=== PATIENT | female | born 1970 | race Caucasian/White ===

== ENCOUNTER 2018-09-24 01:25 | Outpatient (CLI) | payer BC, SELFPAY ==
[2018-09-24 10:31] LABS: Hemoglobin A1C 5.1 % (4.5-6.2)
== END 2018-09-24 01:45 ==
PROVIDERS: PCP Naturopath; Visit Provider Naturopath
DX: Z83.3 Family history of diabetes mellitus (principal)
CPT/HCPCS: 36415; 83036

== ENCOUNTER 2019-10-20 03:57 | Outpatient (CLI) | payer BC, SELFPAY ==
[2019-10-20 10:19] LABS: Abs Immature Grans 0.02 k/cumm (0.0-0.09); Absolute Basophil Count 0.01 k/cumm (0.0-0.2); Absolute Eosinophil Count 0.07 k/cumm (0.0-0.7); Absolute Lymphocyte Count 1.87 k/cumm (1.2-3.4); Absolute Monocyte Count 0.56 k/cumm (0.11-0.7); Absolute Neutrophil Count 3.35 k/cumm (1.2-6.7); Basophils % 0.2; Eosinophils % 1.2; HCT 42.3 % (36.0-46.0); HGB 14.6 g/dL (12.0-15.5); Immature Grans % 0.3 %; Lymphocytes % 31.8; Mean Corp. HGB Concentration 34.5 g/dL (32.0-36.0); Mean Corpuscular Hemoglobin 31.1 pg (27.0-33.0); Mean Corpuscular Volume 90.2 fL (80-95); Mean Platelet Volume 9.5 fL (8.0-11.0); Monocytes % 9.5; Platelet Count 310 x1000/uL (130-400); RBC 4.69 m/cumm (4.00-5.20); RBC Distribution Width 11.8 % (11.7-14.6); White Blood Cell Count 5.88 k/cumm (4.4-10.8)
[2019-10-20 10:24] LABS: Hemoglobin A1C 5.3 % (3.8-5.6)
[2019-10-20 11:04] LABS: Iron 142 ug/dL (50-170)
[2019-10-20 11:19] LABS: ALT 40 U/L (14-59); AST 27 U/L (15-37); Albumin 4.1 g/dL (3.4-5.0); Alkaline Phosphatase 113 U/L (46-116); Anion Gap 9.4 mmol/L (3-11); BUN 6 mg/dL (7-18); Bilirubin, Total 0.6 mg/dL (0.2-1.0); CO2 28.6 mmol/L (21.0-32.0); CREATININE 0.71 mg/dL (0.55-1.02); Calcium 9.3 mg/dL (8.5-10.1); Chloride 97 mmol/L (98-107); Ferritin 90 ng/mL (8-252); Glucose 75 mg/dL (74-106); Potassium 4.4 mmol/L (3.5-5.1); Sodium 135 mmol/L (136-145); TSH 1.12 uIU/mL (0.36-3.74)
[2019-10-20 11:44] LABS: FREE T4 0.97 ng/dL (0.76-1.46)
[2019-10-20 16:23] LABS: T3,Free 4.5 pg/mL (2.8-5.3)
[2019-10-26 15:54] LABS: 25-Hydroxy D Total 60 ng/mL; 25-Hydroxy D2 <4.0 ng/mL; 25-Hydroxy D3 60 ng/mL
== END 2019-10-20 04:17 ==
PROVIDERS: PCP Naturopath; Visit Provider Naturopath
DX: D50.9 Iron deficiency anemia, unspecified (principal); E07.9 Disorder of thyroid, unspecified; R53.83 Other fatigue; E28.310 Symptomatic premature menopause; E55.9 Vitamin D deficiency, unspecified; M79.2 Neuralgia and neuritis, unspecified; Z13.220 Encounter for screening for lipoid disorders; Z13.1 Encounter for screening for diabetes mellitus
CPT/HCPCS: 36415; 80053; 82306; 82728; 83036; 83540; 84439; 84443; 84481; 85025

== ENCOUNTER 2020-04-14 19:02 | Emergency (ER) | payer BC, SELFPAY ==
[2020-04-14 19:06] VITALS: BP 189/95; PULSE 96; RESP 16; TEMP 36.5; O2SAT 96
--- NOTE | 2020-04-14 19:22 | W.ED.GENAD ---
Discharge Plan Disposition Patient Disposition: HOME Condition: Good Discharge Details Clinical Impression: Tick bite Primary Care Provider: Dustin Brumfield ED Provider: Fransisco Tilley Home Meds and New Rx's Prescriptions: No Action No Known Home Meds RF: 0 Discharge Instructions Instructions: Tick Bite (ED) Additional Instructions: You have been given the prophylactic dose for Lyme disease with 200 mg of doxycycline. Please put triple antibiotic ointment on the bite tu on your back. If you notice any spreading of the rash, fever or chills, please return immediately for reassessment. If you notice any worsening of your symptoms, or any new symptoms such as vomiting, diarrhea, fever, chills, shortness of breath, chest pain, numbness, weakness, or fainting , please return immediately to the emergency department for reevaluation. Please follow up with your primary care provider as soon as possible for reassessment and reevaluation. As always, it was a pleasure participating in your medical care today. Referrals: Dustin Brumfield [Primary Care Provider] - Medical Decision Making 49-year-old female with no significant past medical history presents today for tick bite. Patient states that for the last day and a half she suspects that she had a tick on her right shoulder. She has removed the tick, it is a deer tick. She denies fever or chills. She did have a small amount of redness over the right shoulder where the tick bite was. No other complaints at this time. No other modifying factors. There is question about this small tick and remaining in the bite site. A small scalpel was used to remove any leftover remnant. Patient tolerated this well. No signs or symptoms consistent with erythema migrans. Will give prophylactic dose of 200 mg of doxycycline. Discussed red flags which to return. I have extensively reviewed the treatment plan and discharge instructions with the patient. I have addressed all patient concerns at this time. The patient was made aware of what symptoms to monitor for that would warrant a return to the emergency department. Discussed the plan with the patient, they demonstrate verbal understanding and agreement with our assessment and plan at this time. HPI General Date/Time Provider Initiated Documentation: 04/14/20 19:02. HPI Narrative: 49-year-old female with no significant past medical history presents today for tick bite. Patient states that for the last day and a half she suspects that she had a tick on her right shoulder. She has removed the tick, it is a deer tick. She denies fever or chills. She did have a small amount of redness over the right shoulder where the tick bite was. No other complaints at this time. No other modifying factors. Related Data Home Medications Medication Instructions Recorded Confirmed Unknown [No Known Home Meds] 04/14/20 04/14/20 Allergies Allergy/AdvReac Type Severity Reaction Status Date / Time No Known Allergies Allergy Unverified 04/14/20 19:09 General Stated Complaint: RashLesion MILAD: 4 Review of Systems All systems reviewed & are unremarkable except as noted in HPI and below PFSH Social History Smoking/Tobacco Use Status: Current every day Tobacco Type: cigarettes Smoking risk assessment performed?: Yes Alcohol Intake: current Alcohol Intake frequency: holidays/special occasions only Drug use: Never Substance use type: does not use Do you feel safe at home: Yes Do you feel safe in your relationship?: Yes Exam Narrative Exam Narrative: 1.Const: Well-nourished, Well-developed, appearing stated age 2.Eyes: PERRL, no conjunctival injection, and symmetrical lids. 3.ENT: Atraumatic external nose and ears. Moist MM. Neck: Symmetric, trachea midline, No thyromegaly. 4.CVS: +S1/S2, No murmurs or gallops. Peripheral pulses 2+ and equal in all extremities. Brisk capillary refill in all extremities. 5.RESP: Unlabored respiratory effort. Clear to auscultation bilaterally. No wheezes rales or rhonchi 6.GI: Soft, Nontender/Nondistended, No hepatosplenomegaly. No guarding or rebound. 7.MSK: Normocephalic/Atraumatic, Extremities w/o deformity or ttp No cyanosis or clubbing, Normal movement of all extremities 8.Skin: Small lesion on the right posterior shoulder, the area was explored may have been a small retained tick head. This was removed with scalpel without incident. No bull's-eye lesion. Mild redness surrounding the bite site extending roughly 1.5 to 2 cm. 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 Sensation grossly intact, no focal neurologic deficits. 10.Psych: (AAO) x3. Appropriate mood and affect Course Vital Signs Vital signs: Vital Signs Temperature 36.5 C 04/14/20 19:06 Pulse 96 H 04/14/20 19:06 Respiratory Rate 16 04/14/20 19:06 Blood Pressure 189/95 H 04/14/20 19:06 Pulse Oximetry 96 04/14/20 19:06 Temperature 36.5 C 04/14/20 19:06 Temperature Source Skin 04/14/20 19:06 Pulse 96 H 04/14/20 19:06 Respiratory Rate 16 04/14/20 19:06 Respiratory Effort 04/14/20 19:16 Blood Pressure 189/95 H 04/14/20 19:06 Blood Pressure Position Sitting 04/14/20 19:06 Pulse Oximetry 96 04/14/20 19:06 Oxygen Delivery Method Room Air 04/14/20 19:06 Oxygen Flow Rate 0 04/14/20 19:06 Pain Level 2 04/14/20 19:06
[2020-04-14] MEDS: Doxycycline Hyclate 100 MG, 2 CAPS/BTL PO (19:28)
== END 2020-04-14 19:40 | disposition home or self-care (01) ==
LOC: ER 19:37
PROVIDERS: Emergency Provider Student in an Organized Health Care Education/Training Program; PCP Naturopath
DX: S40.261A Insect bite (nonvenomous) of right shoulder, initial encounter (principal); R21 Rash and other nonspecific skin eruption; W57.XXXA Bitten or stung by nonvenomous insect and other nonvenomous arthropods, initial encounter
CPT/HCPCS: 99283

== ENCOUNTER 2020-10-10 02:18 | Outpatient (CLI) | payer BC, SELFPAY ==
[2020-10-10 08:20] LABS: Abs Immature Grans 0.01 10^3/uL (0.0-0.06); Absolute Basophil Count 0.03 10^3/uL (0.0-0.2); Absolute Eosinophil Count 0.11 10^3/uL (0.0-0.7); Absolute Lymphocyte Count 1.68 10^3/uL (1.2-3.4); Absolute Monocyte Count 0.42 10^3/uL (0.1-0.8); Absolute Neutrophil Count 2.48 10^3/uL (1.2-6.7); Basophils % 0.6; Eosinophils % 2.3; HCT 42.4 % (36.0-46.0); HGB 14.6 g/dL (11.2-15.7); Immature Grans % 0.2; Lymphocytes % 35.5; MCH 31.3 pg (27.0-33.0); MCHC 34.4 % (32.0-36.0); MPV 9.6 fL (8.0-11.0); Monocytes % 8.9; Neutrophils % 52.5; Nucleated RBC 0 %; Platelet Count 288 10^3/uL (130-400); RBC 4.66 10^6/uL (3.93-5.22); RDW 11.8 % (11.7-14.6); RDW-SD 39.4 fL; WBC 4.73 10^3/uL (4.4-10.8)
[2020-10-10 09:29] LABS: ALT 76 U/L (14-59); AST 44 U/L (15-37); Albumin 3.9 g/dL (3.4-5.0); Alkaline Phosphatase 97 U/L (46-116); BUN 5 mg/dL (7-18); Bilirubin, Total 0.6 mg/dL (0.2-1.0); CREATININE 0.7 mg/dL (0.55-1.02); Calcium 9.2 mg/dL (8.5-10.1); Calculated LDL 119 mg/dL (<100); Chloride 103 mmol/L (98-107); Cholesterol 242 mg/dL (<200); Glucose 79 mg/dL (74-106); HDL Cholesterol 112 mg/dL (40-60); Potassium 4.6 mmol/L (3.5-5.1); Sodium 140 mmol/L (136-145); TSH 1.36 uIU/mL (0.36-3.74); Total Protein 7.7 g/dL (6.4-8.2); Triglyceride 58 mg/dL (<150)
[2020-10-10 09:58] LABS: FREE T4 1.01 ng/dL (0.76-1.46)
[2020-10-10 17:00] LABS: FSH 54.4 mIU/mL (See Note)
[2020-10-15 00:26] LABS: B.burgdorferi PCR, B Negative (Negative); B.garinii/B.afzelii PCR,B Negative (Negative); B.mayonii PCR, B Negative (Negative)
[2020-10-15 00:32] LABS: IgG Immunoblot Negative (Negative); IgM Immunoblot Negative (Negative)
[2020-10-15 13:51] LABS: 25-Hydroxy D Total 79 ng/mL; 25-Hydroxy D2 <4.0 ng/mL; 25-Hydroxy D3 79 ng/mL
== END 2020-10-10 02:19 | disposition home or self-care (01) ==
PROVIDERS: PCP Naturopath; Visit Provider Naturopath
DX: R53.83 Other fatigue (principal); G43.819 Other migraine, intractable, without status migrainosus; E55.9 Vitamin D deficiency, unspecified; D53.9 Nutritional anemia, unspecified; Z00.00 Encounter for general adult medical examination without abnormal findings; S40.261D Insect bite (nonvenomous) of right shoulder, subsequent encounter; Z13.220 Encounter for screening for lipoid disorders
CPT/HCPCS: 36415; 80053; 80061; 82306; 86617; 86900; 86901; 87476; 87798; 83001; 84439; 84443; 85025

== ENCOUNTER 2021-08-26 17:59 | Outpatient (REF) | payer BC, SELFPAY ==
--- NOTE | 2021-08-26 16:10 | PAPFT_PTH ---
PATIENT: Mitra Bang LOC: [facility] U#:[id number] AGE/SX: 51/F ROOM: RE08/26/[address]: Susan Wright MD : 1970 BED: DIS: 08/26/2021 SPEC #: [id number] RECD: 08/26/21 18:06 STATUS: FLOR REQ #: [id number] KARI: 08/26/21 16:[address]: Susan Wright DEPT: [facility] Cytology RECD BY: Kate Valdez ENTERED: 08/26/21 18:07 SP TYPE: PAPFT OTHR DR: Dustin Brumfield Tissues: 1 - CX/ENDOCX FOR PAP SMEARS Procedures: PAP THIN PREP/UVM Screening HPV DNA PROBE Comments: [id number]
== END 2021-08-26 18:00 | disposition home or self-care (01) ==
LOC: LBN 17:59
PROVIDERS: PCP Naturopath; Visit Provider Obstetrics & Gynecology
DX: Z12.4 Encounter for screening for malignant neoplasm of cervix (principal); Z11.51 Encounter for screening for human papillomavirus (HPV)
CPT/HCPCS: 88142; 87624

== ENCOUNTER 2021-09-16 02:22 | Outpatient (CLI) | payer BC, SELFPAY ==
[2021-09-16 16:36] LABS: Abs Immature Grans 0.01 10^3/uL (0.0-0.06); Absolute Basophil Count 0.04 10^3/uL (0.0-0.2); Absolute Eosinophil Count 0.09 10^3/uL (0.0-0.7); Absolute Monocyte Count 0.61 10^3/uL (0.1-0.8); Absolute Neutrophil Count 2.43 10^3/uL (1.2-6.7); Basophils % 0.7; Eosinophils % 1.6; HCT 40.2 % (36.0-46.0); HGB 13.7 g/dL (11.2-15.7); Immature Grans % 0.2; MCH 31.1 pg (27.0-33.0); MCHC 34.1 % (32.0-36.0); MCV 91.4 fL (80-95); MPV 9.1 fL (8.0-11.0); Monocytes % 10.7; Neutrophils % 42.8; Platelet Count 302 10^3/uL (130-400); RDW 11.6 % (11.7-14.6); RDW-SD 39.1 fL; WBC 5.68 10^3/uL (4.4-10.8)
[2021-09-16 18:47] LABS: ALT 60 U/L (14-59); AST 42 U/L (15-37); Albumin 4.2 g/dL (3.4-5.0); Alkaline Phosphatase 107 U/L (46-116); Anion Gap 8.5 mmol/L (3-11); BUN 10 mg/dL (7-18); Bilirubin, Total 0.3 mg/dL (0.2-1.0); CO2 29.5 mmol/L (21.0-32.0); CREATININE 0.8 mg/dL (0.55-1.02); Calculated LDL 112 mg/dL (<100); Chloride 97 mmol/L (98-107); Cholesterol 221 mg/dL (<200); Glucose 80 mg/dL (74-106); HDL Cholesterol 96 mg/dL (40-60); Potassium 4.3 mmol/L (3.5-5.1); Sodium 135 mmol/L (136-145); TSH 1.03 uIU/mL (0.36-3.74); Total Protein 7.9 g/dL (6.4-8.2); Triglyceride 66 mg/dL (<150); Vitamin B12 780 pg/mL (193-986)
[2021-09-16 18:54] LABS: Folate > 20.0 ng/mL (8.6-20.0)
[2021-09-16 19:20] LABS: FREE T4 1.04 ng/dL (0.76-1.46)
[2021-09-17 13:00] LABS: Bilirubin Negative (Negative); Blood Negative (Negative); Clarity Clear (Clear); Glucose Negative (Negative); Ketones Negative (Negative); Leukocyte Esterase Negative (Negative); Nitrite Negative (Negative); Urobilinogen 0.2 EU/dL (Up TO 0.2)
== END 2021-09-16 02:23 | disposition home or self-care (01) ==
LOC: LBO 02:22
PROVIDERS: PCP Naturopath; Visit Provider Naturopath
DX: E78.00 Pure hypercholesterolemia, unspecified (principal); E07.9 Disorder of thyroid, unspecified; R94.5 Abnormal results of liver function studies; N95.1 Menopausal and female climacteric states; G90.09 Other idiopathic peripheral autonomic neuropathy; G43.819 Other migraine, intractable, without status migrainosus; N60.19 Diffuse cystic mastopathy of unspecified breast; R53.83 Other fatigue; R39.15 Urgency of urination; D53.9 Nutritional anemia, unspecified; Z13.220 Encounter for screening for lipoid disorders
CPT/HCPCS: 36415; 80053; 80061; 81003; 82607; 82746; 84439; 84443; 85025

== ENCOUNTER 2022-12-24 15:58 | Outpatient (REF) | payer OTHER, SELFPAY ==
--- NOTE | 2022-12-24 13:55 | PAPFT_PTH ---
PATIENT: Mitra Bang LOC: [facility] U#:[id number] AGE/SX: 52/F ROOM: RE12/24/[address]: Susan Wright MD : 1970 BED: DIS: 12/24/2022 SPEC #: [id number] RECD: 12/24/22 18:34 STATUS: RICAnders REQ #: [id number] KARI: 12/24/22 13:[address]: Susan Wright DEPT: [facility] Cytology RECD BY: Kate Valdez ENTERED: 12/24/22 18:34 SP TYPE: PAPFT OTHR DR: Dustin Brumfield Tissues: 1 - CX/ENDOCX FOR PAP SMEARS Procedures: PAP THIN PREP/UVM Screening HPV DNA PROBE Comments: [id number]
== END 2022-12-24 15:59 | disposition home or self-care (01) ==
LOC: LBN 15:58
PROVIDERS: PCP Naturopath; Visit Provider Obstetrics & Gynecology
DX: Z12.4 Encounter for screening for malignant neoplasm of cervix (principal); Z11.51 Encounter for screening for human papillomavirus (HPV)
CPT/HCPCS: 88142; 87624

== ENCOUNTER 2022-12-31 04:11 | Outpatient (CLI) | payer OTHER, SELFPAY ==
[2022-12-31 10:47] LABS: Abs Immature Grans 0.01 10^3/uL (0.0-0.06); Absolute Basophil Count 0.04 10^3/uL (0.0-0.2); Absolute Eosinophil Count 0.05 10^3/uL (0.0-0.7); Absolute Monocyte Count 0.68 10^3/uL (0.1-0.8); Absolute Neutrophil Count 2.66 10^3/uL (1.2-6.7); Basophils % 0.7; Eosinophils % 0.9; HCT 40.9 % (36.0-46.0); HGB 14.2 g/dL (11.2-15.7); Immature Grans % 0.2; Lymphocytes % 36.8; MCH 29.5 pg (27.0-33.0); MCHC 34.7 % (32.0-36.0); MCV 85 fL (80-95); MPV 9.3 fL (8.0-11.0); Monocytes % 12.5; Neutrophils % 48.9; Platelet Count 342 10^3/uL (130-400); RBC 4.82 10^6/uL (3.93-5.22); RDW 13.4 % (11.7-14.6); RDW-SD 41.9 fL; WBC 5.44 10^3/uL (4.4-10.8)
[2022-12-31 12:01] LABS: Cholesterol 255 mg/dL (<200); HDL Cholesterol 123 mg/dL (40-60); LDL CHOLESTEROL 115 mg/dL (<100); Triglyceride 38 mg/dL (<150)
[2022-12-31 12:02] LABS: ALT 44 U/L (14-59); AST 37 U/L (15-37); Albumin 4.2 g/dL (3.4-5.0); Alkaline Phosphatase 116 U/L (46-116); BUN 5 mg/dL (7-18); Bilirubin, Total 0.9 mg/dL (0.2-1.0); CREATININE 0.7 mg/dL (0.55-1.02); Calcium 9.4 mg/dL (8.5-10.1); Chloride 97 mmol/L (98-107); Estimated GFR 102.71 (mL/min/1.73m2); Glucose 82 mg/dL (74-106); Potassium 4.1 mmol/L (3.5-5.1); Sodium 133 mmol/L (136-145); Total Protein 8.6 g/dL (6.4-8.2)
== END 2022-12-31 04:12 | disposition home or self-care (01) ==
PROVIDERS: PCP Naturopath; Visit Provider Obstetrics & Gynecology
DX: Z01.419 Encounter for gynecological examination (general) (routine) without abnormal findings (principal)
CPT/HCPCS: 36415; 80053; 83721; 82465; 83718; 84478; 85025

== ENCOUNTER 2023-06-08 02:52 | Outpatient (CLI) | payer OTHER, SELFPAY ==
[2023-06-08 12:20] LABS: Total Protein 8.5 g/dL (6.4-8.2)
== END 2023-06-08 02:53 | disposition home or self-care (01) ==
LOC: LBO 02:52
PROVIDERS: Absent Provider Nurse Practitioner; PCP Nurse Practitioner; Visit Provider Nurse Practitioner
DX: R79.9 Abnormal finding of blood chemistry, unspecified (principal)
CPT/HCPCS: 36415; 82040; 84155

== ENCOUNTER → 2023-06-18 00:40 | Outpatient (CLI) | payer OTHER, SELFPAY ==
--- NOTE | 2023-06-18 08:15 | DI.MRI_ITS ---
Exam(s) MR LOWER EXTREMITY LT WO EXAM: MR LOWER EXTREMITY LT WO CLINICAL HISTORY: 5 mos pain left upper calf,m79.605 TECHNIQUE: Multiplanar multisequence MRI was performed of apparent area of clinical concern. Bavpt-nn-kiuw is i ncluding the knee down to almost mid calf level.. COMPARISON: No exams were available for comparison FINDINGS: There is no abnormal intraosseous signal within the proximal half of the included tibia and fibula. Posteriorly in there is some intramuscular signal evident in the superficial aspect of the medial gas tro cine medius muscle confined to slightly below the posterior aspect of the knee and upper calf. I n the region of the musculotendinous junction. Most probably related to prior strain or injury. Als o noted is abnormal signal in the popliteus muscle medially behind the upper tibia. This is 1 of the 3 components of the lateral collateral ligament complex. This exhibits signal abnormality at the mu sculotendinous junction and cystic change extending up to the musculotendinous junction. See below. Although this is not a dedicated knee MRI, there are significant findings seen in the knee which are detailed below.... EFFUSION: There is a moderate size knee joint effusion. There is no Clifton cyst in the medial poplite al fossa. MARROW:There is no evidence of fracture, bone contusion, nor osteochondral defects.. There are no si gnificant osseous lesions in the knee.. PATELLOFEMORAL COMPARTMENT: The included distal most quadriceps tendon is intact. The patellar ligam ent is intact. There is some thinning of the retropatellar cartilage and abnormal intraosseous signal in the posteri or patella but unfortunately this is only partly included in the field of view. There may be develop ing osteochondral defect at this level.There is no intraosseous signal to suggest recent patellar dis location. There are no patellar retinacular tears. CRUCIATE LIGAMENTS: The anterior cruciate ligament is intact.The posterior cruciate ligament is intac t. MEDIAL COMPARTMENT/MEDIAL MENISCUS: There is no oblique tear in the posterior horn of the medial meni scus which violates the inferior articular surface. No flipped meniscal fragments. The root of the medial meniscus remains intact. The anterior horn of the medial meniscus is intact. There is no men iscocapsular separation.. There are no chondral defects, osteochondral defects, subarticular marrow edema, nor osteophytes evid ent. MEDIAL COLLATERAL LIGAMENT: Intact LATERAL COMPARTMENT/LATERAL MENISCUS: There is no evidence of lateral meniscal tear.There are no orlando dral defects, osteochondral defects, subarticular marrow edema, nor osteophytes evident. ILIOTIBIAL BAND: Intact LATERAL COLLATERAL LIGAMENT COMPLEX: The fibular collateral ligament is intact. The biceps femoris t endon is intact.Popliteus tendon appears intact but there is signal abnormality throughout the vertic al length of the popliteus from its origin behind the upper tibia up to the musculotendinous junction in the knee joint. There is cystic change in the muscle at this level. IMPRESSION: Multilevel findings as described above.... 1. Although this study concentrated (as per request) on the posterior upper calf, part of the knee wa s included in the field of view and reveals significant intra-articular abnormalities in the knee. There is an oblique tear of the posterior horn of the medial meniscus and there is a moderate size kn ee joint effusion. There are no tears of the lateral meniscus nor of the cruciate ligaments nor of t he medial collateral ligament. However, there is abnormal signal consistent with injury in 1 of the 3 components of the lateral collateral ligament complex, this being the popliteus muscle which origin ates off the upper posterior tibia and continues into the knee with its tendon inserting onto the out er aspect of the lateral femoral condyle. There is significant abnormal signal within the vertically orientated musculature of the popliteus behind the upper tibia and up to the muscular tendinous junc tion within the intra-articular knee joint. Are also multiple contiguous cystic degenerative change in this muscle over a vertical length of 2.5 cm with each cystic component measuring approximately 7 x 5 mm. Suspect that this is posttraumatic. The actual tendon component of the popliteus appears in tact. The other 2 components of the lateral collateral ligament complex including the biceps femora is tendon and the fibular collateral ligament appear unremarkable. 2. Most posteriorly in the upper calf there is mild signal abnormality in the posterior aspect of the medial gastrocnemius muscle consistent with probable sprain. This may have probably occurred at the same time as the popliteus injury. 3. Also incidentally noted is significant thinning of the retropatellar cartilage in the knee and sig nal abnormality in the posterior patella. Possible developing osteochondral defect or degenerative s ubarticular cyst at this level. 4. No abnormal intraosseous signal in the knee and proximal tibia-fibula down to the junction of the upper and mid thirds of these bones (which is the lower aspect of the field of view of this MRI study ) DATA REPOSITORY:
== END ==
PROVIDERS: PCP Nurse Practitioner; Visit Provider Nurse Practitioner
DX: M23.222 Derangement of posterior horn of medial meniscus due to old tear or injury, left knee (principal)
CPT/HCPCS: 73718

== ENCOUNTER 2023-07-21 15:12 | Outpatient (CLI) | payer OTHER, SELFPAY ==
--- NOTE | 2023-07-21 14:30 | DI.RAD_ITS ---
Exam(s) XR KNEE LT 3V AP,LAT,LINA EXAM: XR KNEE LT 3V AP,LAT,LINA CLINICAL HISTORY: LEFT KNEE PAIN. TECHNIQUE: 2D digital imaging was performed. COMPARISON: No exams were available for comparison FINDINGS: 3 views No evidence of fracture. Small amount of increased joint fluid. No joint space narrowing. Bone den sity normal. No osseous lesions. IMPRESSION: No acute osseous findings. Small amount of increased joint fluid. DATA REPOSITORY: RADIATION DOSE DELIVERED:
== END 2023-07-21 15:13 | disposition home or self-care (01) ==
LOC: DIORS 15:15
PROVIDERS: PCP Nurse Practitioner; Visit Provider Student in an Organized Health Care Education/Training Program
DX: M25.562 Pain in left knee (principal)
CPT/HCPCS: 73562

== ENCOUNTER 2023-10-06 19:23 | Emergency (ER) | payer OTHER, SELFPAY ==
--- NOTE | 2023-10-06 19:15 | RT.EKG_ITS ---
APPROVED REPORT Exam: Resting ECG Reason for Exam: chest heaviness, rapid pulse Patient Location: E HR:95 bpm ECG Measurements Heart Rate 95 AXIS RI 137 P 27 QRSd 90 QRS 36 QT 361 T 8 QTc 454 Conclusion Sinus rhythm...normal P axis, V-rate 60- 99 sinus rhtyhm, normal axis, noraml intervals, non ischemic
[2023-10-06 19:26] VITALS: BP 200/108; PULSE 105; RESP 18; TEMP 36.9; O2SAT 100
--- NOTE | 2023-10-06 20:00 | DI.RAD_ITS ---
Exam(s) XR CHEST 2V PA LATERAL EXAM: XR CHEST 2V PA LATERAL CLINICAL HISTORY: chest pain TECHNIQUE: 2D digital imaging was performed of the chest. Two images were obtained. PA and lateral views were obtained. COMPARISON: No exams were available for comparison FINDINGS: MEDIASTINUM: Normal. HEART: Normal. PULMONARY VASCULATURE: Normal. LUNGS: Clear. PLEURAL SPACE: No pleural effusion or pneumothorax. BONE:Within normal limits for the patient's age. OTHER FINDINGS:Normal. IMPRESSION: No acute pulmonary findings. DATA REPOSITORY: RADIATION DOSE DELIVERED:
--- NOTE | 2023-10-06 20:08 | ED.GENADUL_ITS ---
Discharge Plan Disposition Patient Disposition: Home Condition: Improving Discharge Details Chief Complaint: GenMedical Clinical Impression: Hypertension Primary Care Provider: Rohini Sullivan ED Provider: Chirag Chapman Home Meds and New Rx's Prescriptions: No Action ascorbic acid (vitamin C) 1,000 mg tablet 1 g PO DAILY cholecalciferol (vitamin D3) 125 mcg (5,000 unit) capsule 125 mcg PO DAILY vitamin B complex Tablet 1 tab PO DAILY Discharge Instructions Instructions: Hypertension (ED) Additional Instructions: Please follow closely with your primary care physician. Please return to the emergency department for any worsening symptoms HPI General Date/Time Provider Initiated Documentation: 10/06/23 19:55 . HPI Narrative: 53-year-old female presents with nondraining anterior chest pain that began earlier this evening in the setting of high blood pressure at home. Has been under stress related to work related issues. No history of thromboembolic disease no history of coronary disease, no exogenous estrogen use. Pain pressure-like anterior nonradiating nonexertional no diaphoresis nausea vomiting or other systemic signs of illness. Patient feeling asymptomatic now Related Data Home Medications Medication Instructions Recorded Confirmed ascorbic acid (vitamin C) 1,000 mg 1 g PO DAILY 08/26/21 10/06/23 tablet cholecalciferol (vitamin D3) 125 125 mcg PO DAILY 08/26/21 10/06/23 mcg (5,000 unit) capsule vitamin B complex 1 tab PO DAILY 12/24/22 10/06/23 Allergies Allergy/AdvReac Type Severity Reaction Status Date / Time house dust Allergy Intermediate Stuffed up Verified 10/06/23 19:31 pollen Allergy Intermediate stuffed up Uncoded 10/06/23 19:31 General Stated Complaint: GenMedical MILAD: 3 Review of Systems Narrative: Review of Systems Constitutional: negative Eyes: negative ENT: negative Cardiovascular: Chest discomfort, high blood pressure Respiratory: negative Gastrointestinal: negative : negative Musculoskeletal: negative Skin: negative Neurologic: negative Psych: negative Exam Narrative Exam Narrative: Physical Examination General: alert, awake, cooperative, resting comfortably, no acute distress HEENT: normocephalic, atraumatic; PERRL, EOM intact, conjunctiva normal; no nasal discharge; moist mucous membranes, oral and pharyngeal mucosa normal, tolerating secretions Neck: supple, trachea midline; full ROM Chest: normal to inspection Respiratory: normal respiratory effort, speaking in full sentences, clear to auscultation, no wheezing, rales or rhonchi Cardiac: regular rate, regular rhythm, S1S2 intact, no murmurs rubs or gallops GI: abdomen soft, non-tender, non-distended; no palpable mass or hepatosplenomegaly Skin: no lesions, rashes or trauma appreciated Neuro: AAOx3, normal speech, moving all extremities Extremities: No peripheral edema Psych: Appropriate mood and affect Course Vital Signs Vital signs: Vital Signs Temperature 36.9 C 10/06/23 19:26 Pulse 105 H 10/06/23 19:26 Respiratory Rate 18 10/06/23 19:26 Blood Pressure 200/108 H 10/06/23 19:26 Pulse Oximetry 100 10/06/23 19:26 Temperature 36.9 C 10/06/23 19:26 Temperature Source Temporal Artery Scan 10/06/23 19:26 Pulse 105 H 10/06/23 19:26 Respiratory Rate 18 10/06/23 19:26 Respiratory Effort Normal, Non-Labored 10/06/23 19:32 Blood Pressure 200/108 H 10/06/23 19:26 Blood Pressure Position Sitting 10/06/23 19:26 Pulse Oximetry 100 10/06/23 19:26 Oxygen Delivery Method Room Air 10/06/23 19:26 Oxygen Flow Rate 0 10/06/23 19:26 Pain Level 0 10/06/23 19:26 Medical Decision Making 53-year-old female presents with nondraining anterior chest pain that began earlier this evening in the setting of high blood pressure at home. Has been under stress related to work related issues. No history of thromboembolic disease no history of coronary disease, no exogenous estrogen use. Pain pressure-like anterior nonradiating nonexertional no diaphoresis nausea vomiting or other systemic signs of illness. Patient feeling asymptomatic now. Blood pressure down trended to 160 systolic after arrival, heart rate 95 bpm, no hypoxia afebrile nontoxic no peripheral edema. EKG normal sinus rhythm normal axis normal intervals nonischemic. Consider ACS versus anxiety versus musculoskeletal discomfort low suspicion for PE or aortic pathology. Screening labs chest x-ray aspirin offered patient anxiolysis however she feels comfortable at this time. Disposition pending reassessment 22: 04 resting comfortably no acute distress. Asymptomatic. Blood pressure has come down on its own. Patient much more comfortable. Will follow-up close with primary care physician. Quality:SDOH Health Related Social Needs: No Data to Display PFSH All Active Problems (Updated 10/06/23 @ 22:05 by Chirag Chapman MD) Hypertension (Chronic) Derangement of medial meniscus of left knee (Acute) Post-menopausal bleeding (Acute) LEVAR (stress urinary incontinence, female) (Acute) Migraine headache (Chronic) Medical History Round hole, right eye 12/22/22 [facility] Swelling, mass, or lump in head and neck Family History Maternal Grandmother Cancer Maternal Grandfather Cancer Paternal Grandfather Cancer Heart disease Maternal Grandmother Cancer Mother Diabetes Father Hypertension Brother , half brother passed from cancer at 49, per previous pcp record Cancer Anxiety Social History Smoking/Tobacco Use Status: Current every day Tobacco Type: cigarettes Tobacco: How many years used: 35 Quit status: considering quitting Second Hand Exposure: No Smoking risk assessment performed?: Yes Alcohol Intake: current Alcohol Intake frequency: a few times a week Alcohol type: beer Details: 4 or more times a week 3-4 at a time. More than ? 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 [employer] Pets and animals: Yes (1 dog) Pets and animals: dog(s) Sexually active: No Do you think of yourself as: straight/heterosexual Current gender identity: female What is your relationship status?: How often do you talk on the phone with friends or family?: once per week Do you belong to any clubs or organized social groups?: yes Panel score (0-1 are the most socially isolated patients): 2 What type of physical activity do you participate in: additional Details: [employer] [place] [employer] Duration: 45-60 minutes/day Frequency: 1-2 times per week Mirian/Confucianism: None Special mirian needs: No Seatbelt use: always Helmet use: Yes Drive intox or ride w/intox local flatbed driver: No Do you feel safe at home: Yes Do you feel safe in your relationship?: Yes Female Reproductive History Menstrual Age of Menarche: 10 Duration of menses: 3-5 days Date of menopause: 07/29/20 History History 4 Para 3 Hx # Term Pregnancies Multiple births Hx # Pregnancies Ectopic pregnancies AB induced Hx Number of Living Children AB spontaneous 1 Past Pregnancies Del. Date GA/Weeks # Preg Succ Route Wgt Sex Labor Lgth Anesth esia Location Prov Complic 06/07/00 40 No vaginal 3458.642 g Male 02/12/03 41 No vaginal 3458.642 g Male Child identifies as tr ans 02/29/08 40 No vaginal 3628.739 g Male Delivery Date: 06/07/00 Last Updated by: Amanda Gonsalez home Delivery Date: 02/12/03 Last Updated by: Amanda Gonsalez bleeding after - stopped by natural tincture during home Delivery Date: 02/29/08 Last Updated by: Amanda Gonsalez home
[2023-10-06 20:18] LABS: Absolute Basophil Count 0.02 10^3/uL (0.0-0.2); Absolute Eosinophil Count 0.04 10^3/uL (0.0-0.7); Absolute Lymphocyte Count 1.96 10^3/uL (1.2-3.4); Absolute Monocyte Count 0.49 10^3/uL (0.1-0.8); Absolute Neutrophil Count 2.47 10^3/uL (1.2-6.7); Basophils % 0.4 %; Eosinophils % 0.8 %; HCT 38.5 % (36.0-46.0); HGB 13.1 g/dL (11.2-15.7); Lymphocytes % 39.4 %; MCH 28.2 pg (27.0-33.0); MCV 83 fL (80-95); MPV 8.9 fL (8.0-11.0); Monocytes % 9.8 %; Neutrophils % 49.6 %; Platelet Count 326 10^3/uL (130-400); RBC 4.64 10^6/uL (3.93-5.22); RDW 14.3 % (11.7-14.6); RDW-SD 43.3 fL; WBC 4.98 10^3/uL (4.4-10.8)
[2023-10-06 20:31] LABS: PTT Activated 29.7 sec (23.6-32.8); Prothrombin Time 9.9 sec (9.1-11.1)
[2023-10-06 20:44] LABS: ALT 33 U/L (14-59); AST 25 U/L (15-37); Albumin 4.3 g/dL (3.4-5.0); Alkaline Phosphatase 111 U/L (46-116); Anion Gap 11.5 mmol/L (3-11); BUN 9 mg/dL (7-18); Bilirubin, Total 0.5 mg/dL (0.2-1.0); CO2 25.5 mmol/L (21.0-32.0); CREATININE 0.8 mg/dL (0.55-1.02); Calcium 9.1 mg/dL (8.5-10.1); Chloride 97 mmol/L (98-107); Estimated GFR 86.96 (mL/min/1.73m2); Glucose 92 mg/dL (74-106); Magnesium 2.1 mg/dL (1.8-2.4); NT-proBNP 91 pg/mL (<300); Potassium 3.6 mmol/L (3.5-5.1); Sodium 134 mmol/L (136-145); TSH (W/Ref FT4) 1.81 uIU/mL (0.36-3.74); Total Protein 8.7 g/dL (6.4-8.2); Troponin I < 50 ng/L (< or =60)
[2023-10-06] MEDS: Aspirin 81 MG CHEW 324 MG CH (21:11)
[2023-10-06 21:13] VITALS: BP 160/86; PULSE 80; RESP 18; O2SAT 100
[2023-10-06 21:14] VITALS: RESP 15; O2SAT 99
--- NOTE | 2023-10-06 21:59 | DI.VRAD_ITS ---
PROCEDURE INFORMATION: Exam: XR Chest Exam date and time: 10/06/2023 8:27 PM Age: 53 years old Clinical indication: Other: Chest pain TECHNIQUE: Imaging protocol: Radiologic exam of the chest. Views: 2 views. COMPARISON: No relevant prior studies available. FINDINGS: Lungs: Unremarkable. No consolidation. Pleural spaces: Unremarkable. No pleural effusion. No pneumothorax. Heart/Mediastinum: Unremarkable. No cardiomegaly. Bones/joints: Unremarkable. IMPRESSION: No acute findings. Dictated and Authenticated by: Mauri Bender MD. Ordering:OMER Beard MD
[2023-10-06 22:12] VITALS: BP 167/96; PULSE 95; RESP 18; O2SAT 99
== END 2023-10-06 22:13 | disposition home or self-care (01) ==
PROVIDERS: Emergency Provider Emergency Medicine; PCP Nurse Practitioner
DX: R07.9 Chest pain, unspecified (principal); R03.0 Elevated blood-pressure reading, without diagnosis of hypertension; F17.210 Nicotine dependence, cigarettes, uncomplicated
CPT/HCPCS: 80053; 93005; 99285; 71046; 83735; 83880; 84443; 84484; 85025; 85610; 85730; 93010; 99284

== ENCOUNTER 2023-12-16 02:38 | Outpatient (CLI) | payer OTHER, SELFPAY ==
--- OUTSIDE RECORDS SUMMARY | 2023-12-16 02:40 | XMS_ITS | Clinical Summary ---
Author Organization 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 Rig Builder Name Role Phone Dustin Brumfield [place] Primary Care Provider Allergies No known active allergies Medications No known medications Social History Tobacco Use Types Packs/Day Years Used Date Smoking Tobacco: Never Smokeless Tobacco: Never Interpersonal Safety Answer Date Record ed Physically Hurt Never 12/31/2019 Verbally Threaten Not on file 12/31/2019 Sex and Gender Information Value Date Recorded Sex Assigned at Not on file Gender Identity Not on file Sexual Orientation Not on file Obstetrics History Plan of Treatment Health Maintenance Due Date Last Done Comments Hepatitis C Screen 1970 Hepatitis B Vaccine (1 of 3 - 19+ 3-dose series) 06/22 COVID-19 Vaccine ( season) 2023 Care Teams Oil Field Rig Builder Relationship Specialty Start Date End Date Dustin Brumfield [place] [address] [place] [address] PCP - General 08/27/17
--- OUTSIDE RECORDS SUMMARY | 2023-12-16 02:40 | XMS_ITS | Encounter Summary ---
Author Organization [facility] Address [address] [place] [address] Care Team Providers Care Iron Miner Name Role Phone Dustin Brumfield ND Primary Care Provider Reason for Visit * Reason Onset Date Comments Appointment Related 10/25/2017 Encounter Details Date Type Department Care Team (Late st Contact Info) Description 10/25/2017 Telephone [facility] Ophthalmology - [facility] [address], [place] [id number] Robbin Perry MD [address] [facility] [place] [address] Appointment Related Social History Tobacco Use Types Packs/Day Years Used Date Smoking Tobacco: Never Smokeless Tobacco: Never Sex and Gender Information Value Date Recorded Sex Assigned at Not on file Gender Identity Not on file Sexual Orientation Not on file documented as of this encounter Miscellaneous Notes * Telephone Encounter - Nicole Cortes - 10/25/20172020 EDT PAS Message: Patient called to cancel appointment at 2:15 on 10/27/[address] Perry. She is working with her local doctor and she has no insurance. Does not need to reschedule. documented in this encounter Plan of Treatment Not on file documented as of this encounter Visit Diagnoses Not on filedocumented in this encounter Care Teams Iron Miner Relationship Specialty Start Date End Date Dustin Brumfield [place] [address] [place] [address] PCP - General 08/27/17 documented as of this encounter
--- OUTSIDE RECORDS SUMMARY | 2023-12-16 02:40 | XMS_ITS | Encounter Summary ---
Author Organization [facility] Address [address] [place] [address] Care Team Providers Care Block Making Machine Operator Name Role Phone Dustin Brumfield ND Primary Care Provider Encounter Details Date Type Department Care Team (Late st Contact Info) Description 08/27/2021 Lab Requisition [facility] Pathology & Laboratory Medicine - [address] [address] Susan Wright MD [address] [place] [address] [place] [address] Encounter for other general examination Social History Tobacco Use Types Packs/Day Years Used Date Smoking Tobacco: Never Smokeless Tobacco: Never Interpersonal Safety Answer Date Record ed Physically Hurt Never 12/31/2019 Verbally Threaten Not on file 12/31/2019 Sex and Gender Information Value Date Recorded Sex Assigned at Not on file Gender Identity Not on file Sexual Orientation Not on file documented as of this encounter Plan of Treatment Not on file documented as of this encounter Procedures Procedure Name Priority Date/Time Associated Diagnosis Comments PAP TEST Today 08/26/2021 16:10 EDT Encounter for other general examination HPV DNA DETECTION WITH GENOTYPING, PCR Today 08/26/2021 16:10 EDT Encounter for other general examination documented in this encounter Results * HUMAN PAPILLOMAVIRUS (HPV) DETECTION-HIGH RISK TYPES (08/26/2021 16:10 EDT) HPV other High Risk types, PCR Negative Negative 09/01/2021 15:22 T [facility] Comment:No E6 or E7 mRNA is detected from HPV types 16,18,31,33,35,39,45,51,52,56,58,59,66, and 68 by double corner cutter mediated amplification. Papanicolaou smear specimen (specimen) CERVIX UTERI STRUCTURE / Unknown 08/26/2021 16:10 EDT 08/29/2021 12:34 EDT Susan Wright MD MICROBIOLOGY - GENER AL ORDERABLES [facility] [address] [place] [address] * PAP TEST (08/26/2021 16:10 EDT) Specimens A. Cervix and/or Endocervix , ThinPrep Imaging System with Manual Evaluation 09/01/2021 15:22 [facility] Specimen Adequacy Satisfactory for Evaluation - transformation zone component present Scant squamous epithelial component 09/01/2021 15:22 [facility] General Categorization Negative for intraepithelial lesion or malignancy 09/01/2021 15:22 [facility] Attestation . 09/01/2021 15:22 [facility] at 1522 Clinical History See below 09/02/19 15:22 [facility] HPV The result for the Human Papillomavirus (HPV) Detection-High Risk Types is Negative. No E6 or E7 mRNA is detected from HPV types 16,18,31,33,35,39 ,45,51,52,56,58,5 9,66, and 68 by double corner cutter mediated amplification.Kelly ting was performed on specimen [id number] and was resulted on 09/01/2021 1520 EDT by KAYLEE, LAB INSTRUMENT RESULTS IN 09/01/2021 15:22 T [facility] Performing Lab [facility] 09/01/2021 15:22 [facility] Scanned Images 09/01/2021 15:22 EDT [facility] Papanicolaou smear specimen (specimen) CERVIX UTERI STRUCTURE / Unknown 08/26/2021 16:10 EDT 08/27/2021 11:09 EDT Susan Wright MD PATHOLOGY ORDERABLES [facility] [address] [place] [address] documented in this encounter Visit Diagnoses Diagnosis Encounter for other general examination documented in this encounter Care Teams Block Making Machine Operator Relationship Specialty Start Date End Date Dustin Brumfield ND [address] [place] [address] PCP - General 08/27/17 documented as of this encounter
--- OUTSIDE RECORDS SUMMARY | 2023-12-16 02:40 | XMS_ITS | Referral Summary ---
Author Organization [facility] Address [address] [place] [address] Care Team Providers Care Bagger Meat Name Role Phone Dustin Brumfield ND Primary [...] on file Sexual Orientation Not on file Plan of Treatment Not on file Care Teams Bagger Meat Relationship Specialty Start Date End Date Dustin Brumfield ND [address] [place] [address] PCP - General 08/27/17
--- OUTSIDE RECORDS SUMMARY | 2023-12-16 02:40 | XMS_ITS | Encounter Summary ---
Author Organization [facility] Address [address] [place] [address] Care Team Providers Care Business Administrator Name Role Phone Dustin Brumfield ND Primary Care Provider Encounter Details Date Type Department Care Team (Late st Contact Info) Description 10/10/2020 Lab Requisition [facility] Pathology & Laboratory Medicine - [address] [address] Outr Resulting Lab, Provider Social History Tobacco Use Types Packs/Day Years [...] Procedure Name Priority Date/Time Associated Diagnosis Comments FSH Routine 10/10/2020 8:13 EDT documented in this encounter Results * FSH (10/10/2020 8:13 EDT) FSH 54.4 See Note mIU/mL 10/10/2020 16:56 EDT [facility] Blood VENOUS BLOOD / Unknown 10/10/2020 8:13 EDT 10/10/2020 16:05 EDT Narrative [facility] - 10/10/2020 16:56 EDT NOTE: Female FSH Reference Ranges (>= 13 Menstruating): PHYSIOLOGICAL STATUS ? REFERENCE RANGE ? Follicular (-12 to -4 days): ?? 2.5 - 10.2 mIU/mL Midcycle (-3 to +2 days): ?3.4 - 33.4 mIU/mL Luteal (+4 to +12 days): ? 1.5 - 9.1 mIU/mL Postmenopausal: ?23.0 - 116.3 mIU/mL Reference Ranges for female patients <13 years old have not been established. Provider Outr Resulting Lab CHEMISTRY & BLOOD GAS ORDERABLES [facility] [address] [place] [address] documented in this encounter Visit Diagnoses Not on filedocumented in this encounter Care Teams Business Administrator Relationship Specialty Start Date End Date Dustin Brumfield ND [address] [place] [address] PCP - General 08/27/17 documented as of this encounter
--- OUTSIDE RECORDS SUMMARY | 2023-12-16 02:40 | XMS_ITS | Encounter Summary ---
Author Organization [facility] Address [address] [place] [address] Care Team Providers Care Freight Sales Broker Name Role Phone Dustin Brumfield ND Primary Care Provider Reason for Visit * Reason Onset Date Comments Appointment Related 10/25/2017 Encounter Details Date Type Department Care Team (Late st Contact Info) Description 10/25/2017 Telephone [facility] Family Medicine [address] [place] [id number] Robbin Perry MD [address] [facility], [facility] [place] [address] [place] [address] Appointment Related Social History Tobacco Use Types Packs/Day Years Used Date Smoking Tobacco: Never Smokeless Tobacco: Never Sex and Gender Information Value Date Recorded Sex Assigned at Not on file Gender Identity Not on file Sexual Orientation Not on file documented as of this encounter Miscellaneous Notes * Telephone Encounter - Nicole Cortes - 10/25/2017 2017 EDT PAS Message: Patient called to cancel appointment at 2:15 on 10/27/[address] perry. She is working with her local doctor and she does not have insurance. Does not need to reschedule. documented in this encounter Plan of Treatment Not on file documented as of this encounter Visit Diagnoses Not on filedocumented in this encounter Care Teams Freight Sales Broker Relationship Specialty Start Date End Date Dustin Brumfield ND [address] [place] [address] PCP - General 08/27/17 documented as of this encounter
--- OUTSIDE RECORDS SUMMARY | 2023-12-16 02:40 | XMS_ITS | Data Portability ---
Author Organization [place] - [facility], MAIN OFFICE Address [address] [place] [address] Assessment Encounter Date Assessment Date Assessment LastModified by Organization Details LastModified Time 09/08/2018 09/08/2018 pt PTO for annual checkup as well as fatigue, anxiety and some Family history screening. I spent a total of 60 minutes face to face time with this patient and 35 minutes of that time was spent in counseling and coordination of care with that patient as described in the progress note and /or: recommended diagnostic studies Risk factor reduction instructions for treatment and follow-up Not available 09/13/2018 12:52:03 09/29/2018 09/29/2018 pt rto for 40 minute face ot face visit. We reviewed reports from Mine Development Engineer and Eye Dr. she will fu with retinal specialist about hole in retina. We spent additional time going over a modified mercury removal plan below for a 50 minute visit in total. Not available 10/04/2018 08:17:56 Plan of Treatment Reminders Order Date Submit Date Provider Last Modified By Organization Details Last Modified Time Details Appointments None recorded. Lab magnesium, serum or plasma 2018 019 LEAH Not available 9 09:06:49 pap, LB 2018 019 LEAH Not available 9 11:43:35 HbA1c (hemoglobin A1c), blood 2018 019 [facility] (Registration ), [address] [place] [address] [place], [address], 9 05:01:06 lipid panel, serum 2018 019 [facility] (Registration ), [address] [facility] [place], [address], 0 05:01:26 lipoprotein (a), quant, serum 2018 019 LEAH Not available 9 05:00:54 vitamin B12 + folate, serum or blood 2018 LEAH Not available 9 05:00:54 vitamin D, 25-hydroxy, total, serum 2018 LEAH Not available 9 09:06:50 CMP, serum or plasma 2018 LEAH Not available 9 09:06:48 T3, free, serum or plasma 2018 LEAH Not available 9 09:06:52 TSH + free T4, serum 2018 LEAH Not available 9 05:00:54 CBC w/ diff 2018 LEAH Not available 9 05:00:54 iron + TIBC + ferritin, serum 2018 LEAH Not available 9 05:00:54 thyroperoxi dase Ab, serum 2018 LEAH Not available 9 05:00:54 thyroglobul in Ab, qual, serum 2018 LEAH Not available 9 09:06:51 Referral ophthalmolo gist referral 2018 LEAH [facility], [address] [place] [address] [place], [address], 9 05:01:12 Procedures None recorded. Surgeries None recorded. Imaging None recorded. Medication Orders None recorded. Patient TargetsNo targets recorded. Patient Instructions Encounter Date Encounter Id Patient Instructions Last Modified By Organization Details Last Modified Time 09/08/2018 [id number] 1. Kegel exercises at every stop light and stop sign 2. first thing in am test BP and record until we meet again 3 Magnesium citrate or glycinate chelate form 300mg/day- help with BP and anxiety 4. Itching under arms- apply tea tree oil directly with a cotton ball every day after a shower 5. RTO to discuss results [email or web address] Not available 09/13/2018 12:42:15 09/29/2018 [id number] abnormal Pap test: care instructions [email or web address] Not available 10/04/2018 08:24:28 headache: care instructions [email or web address] Not available 10/04/2018 08:24:28 high blood pressure: care instructions [email or web address] Not available 10/04/2018 08:24:28 learning about high blood pressure [email or web address] Not available 10/04/2018 08:24:28 1. active b12/folate 1 tab 2. Migramaxx 2 cap -4 caps as needed 1 cap before prolonged fasting ot stressful situation aas preventative 3. magnesium taurate or glycinate chelate 300mg/day along with a multi??? 4. mercury removal plan: 2-3 weeks before- start taking 2 drops A-mulsion a day and 2 pills 3xday, paelogreen powder in addition to eating alot of green veggies in your diet then after you needs to take: Amino-d-tox and up to 10g Vit C or until bowel tolerance- for 1 month and 10 drops of vit A-mulsion drops for 10 days urine toxic elements testing- ??? Call if you want to move forward with this plan and I will get you the necessary items into the medicinary. Consider calling Dr. Paige in [place] about amalgam removals- Not available 10/04/2018 08:18:50 Reason for Referral Mill Machinist Referral for Sees flashes Referring Physician: Iraida Salazar, Naturopathic Medicine, Encounter Date: 09/08/2018 Drum Worker Referral for At ypical squamous cells of undetermined significance on cervical Papanicolaou smear Referring Physician: Iraida Salazar, Naturopathic Medicine, Encounter Date: 09/16/2018 Problems Name Status Onset Date Resolution Date Notes Provider Name and Address Organization Details Recorded Time Benign essential hypertension Active 10/05/19 19 Iraida Salazar, JUVENT[address] [place], [address], [facility] 10/04/2018 08:23:43 Dental amalgam filling present Active 10/05/19 19 Iraida Salazar ND [address] [place] [address], [phone], [facility] 10/04/2018 08:23:43 Headache Active 10/05/19 19 Iraida Salazar ND [address] [place] [address], [phone], [facility] 10/04/2018 08:23:45 Atypical squamous cells of undetermined significance on cervical Papanicolaou smear Active 10/05/19 19 Iraida Salazar ND [address] [place] [address], [phone], [facility] 10/04/2018 08:23:47 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 Procedures Surgical History Date Name Laterality Status Provider Name and Address Organization Details Recorded Time 09/07/2016 Date of Last Pap Smear completed Iraida Salazar ND [address] [place] [address], [phone], [facility] 09/08/2018 12:40:58 09/08/2011 completed Iraida Salazar ND [address] [place] [address], [phone], [facility] 09/08/2018 12:40:58 09/28/1973 Other completed Iraida Salazar ND [address] [place] [address], [phone] [place] [address] 09/08/2018 12:43:34 Imaging Results None recorded. Procedure Notes None recorded. Medical Equipment None Reported. Medications Name Sig Start Date Stop Date Status Note LastModified by Organization Details LastModified Time amoxicillin 250 mg capsule active Not Available Not Availab le Not Available Vitals Date Recorded Body weight Body mass index (BMI) Body height Heart rate Systolic blood pressure Diastolic blood pressure Provider Name and Address Organization Details Last Updated DateTime 9 17999.4 6 g 30.4 kg/m2 166.37 cm 80 /min 150 mm[Hg] 90 mm[Hg] Iraida Salazar, JUVENTINO [address] [facility] [address] [place] [address] 9 12:37:03 Date Recorded Body height Systolic blood pressure Diastolic blood pressure Provider Name and Address Organization Details Last Updated DateTime 09/29/2018 166.37 cm 150 mm[Hg] 78 mm[Hg] Iraida Salazar, JUVENTINO [address] [place] [address] [phone] [place] [address] 09/29/2018 12:24:28 Social History Question Answer Notes LastModified by Organizat ion Details LastModified Time Tobacco Smoking Status Current Every Day Smoker Not Available [facility] 04/02/2020 03:41:49 What Is Your Level Of Alcohol Consumption? Moderate [id number] Information not available 04/02/2020 How Many Years Have You Consumed Alcohol? 30 [id number] Information not available 04/02/2020 Animal Exposure? Yes Informat ion not available 09/08/2018 Are You Blind Or Do You Have Difficulty Seeing? No [id number] Information not available 04/02/2020 What Is Your Level Of Caffeine Consumption? Moderate [id number] Information not available 04/02/2020 How Much Tobacco Do You Chew? None [id number] Information not available 04/02/2020 Are You Currently Employed? Yes [id number] Information not available 04/02/2020 Are You Deaf Or Do You Have Serious Difficulty Hearing? No [id number] Information not available 04/02/2020 What Type Of Diet Are You Following? 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 No [id number] Information no t available 04/02/2020 Frequent Air Travel No Information not available 09/08/2018 Hard Of Hearing Or Deaf In One Or Both Ears? No Information not available 09/08/2018 Legally Blind In One Or Both Eyes? No Information no t available 09/08/2018 Live Alone Or With Others? With Others Information not available 09/08/2018 Marital Status Informatio n not available 09/08/2018 What Was The Date Of Your Most Recent Tobacco Screening? 09/08/2018 [id number] Information not available 04/02/2020 How Many Children Do You Have? 3 [id number] Information not available 04/02/2020 Do You Use Protection During Sex? Always [id number] Information not available 04/02/2020 What Is Your Relationship Status? [id number] Information not available 04/02/2020 Are You Sexually Active? Yes [id number] Information not available 04/02/2020 At What Age Did You Start Smoking Tobacco? 16 [id number] Information not available 04/02/2020 General Stress Level Medium Information not available 09/08/2018 Sex: Unknown Functional Status Question Answer Note LastModified by Organizat ion Details LastModified Time Do you have difficulty walking or climbing stairs? No [id number] Information not available 04/02/2020 Do you have difficulty doing errands alone? No [id number] Information not available 04/02/2020 Are you able to care for yourself? Yes [id number] Information not available 04/02/2020 Do you have difficulty dressing or bathing? No [id number] Information not available 04/02/2020 What is your exercise level? Occasional [id number] Information not available 04/02/2020 Mental Status Question Answer Note LastModified by Organization D etails LastModified Time Do you have difficulty concentrating, remembering or making decisions? No [id number] Information no t available 04/02/2020 Family History Relationship Description Onset Age of this Age Resolved Age Notes Paternal Grandfather Heart disease Father Arthritis Mother Diabetes mellitus ty pe 2 Brother Depressive disorder Brother Anxiety disorder Medical History Condition Response Coronary Artery Disease N Other N Gout N Kidney Stones N Blood Diseases N Hyperthyroidism N Breast Cancer N Blood Transfusion N COPD N Hypothyroidism N Lung Disease N Depression Y Defects or Inherited Disease N Developmental or Behavioral Disorders N Breast Problem N Difficulty Swallowing N Anesthesia Complications N Meniere's disease N Anxiety Disorder N Muscle, Joint, or Bone Problems N Obesity N Vision or Eye Problems Y Arthritis N Polyps N Infertility N Mental Disorder N Cancer N Varicosities N Stroke N Endometriosis N Bladder or Kidney Problems N High Cholesterol N Liver Disease N Headaches N Fibromyalgia N Kidney Disease N Allergies/Hayfever Y Heart Problems N Sleep problems/insomnia N Ear or Hearing Problems N Hospitalizations N Thyroid Problems N GI Problems N ADD/ADHD N Skin Problems N Eating Disorder N Anemia N MRSA exposure N Constipation N Mental Illness N Ovarian Cancer N Diabetes N Bedwetting N Seizures/Epilepsy N Tuberculosis N AIDS/HIV N Congestive Heart Failure (CHF) N Eczema N Diverticulitis N Abuse/Domestic Violence N Asthma N Reflux/GERD N Hepatitis N Heart Disease N Pulmonary Embolism N Pre-Eclampsia N Hypertension N Chronic Ear Infections N Osteoporosis N Chicken Pox Y Autism Spectrum Disorder (ASD) N Thrombophilias N Gynecological History Statement/Question Response 09/08/2011 Flow Moderate STIs/STDs N Duration of Flow (days) 5 Current Control Method Condoms Age at First Child 29 Sexually Active? Y Condoms Date of Last Pap Smear 09/07/2016 Sexual Problems? N Desired Control Method Condoms N Obstetrics History GPAL:G 0 P 0 0 0 0 Immunizations Vaccine Type Date Status Provider Name and Address Organization Details Recorded Time polio, unspecified formulation 1970 yohana Salazar ND [address] [place] [address], [phone], [facility] 09/08/2018 12:43:49 MMR 1970 yohana Salazar ND [address] [place] [address], [phone], [facility] 09/08/2018 12:43:49 tetanus toxoid, unspecified formulation 07/30/1995 yohana Salazar ND [address] [place] [address], [phone], [facility] 09/08/2018 12:43:49 DTaP 1970 completed Iraida JUVENTINO Saal[address] [facility], [place], [address], [facility] 09/08/2018 12:43:49 Past Encounters Encounter ID Performer Location Encounter Start Date Encounter Closed Date Diagnosis/Indication Diagnosis SNOMED-CT Code [id number] Iraida JUVENTINO Salazar MAIN OFFICE [address] [place] [id number] 09/08/2018 12:32:28 09/08/2018 13:45:32 Family history of diabetes mellitus type 2 757501045 Fatigue 40015472 On examina tion - initial high BP 180288064 Sees flashes 974128216 Adult heal th examination 595110743 [id number] Iraida JUVENTINO Salazar MAIN OFFICE [address] [place] [id number] 09/29/2018 12:12:17 09/29/2018 13:16:24 Round 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 54435966 Atypical s quamous cells of undetermined significance on cervical Papanicolaou smear 488450108 Benign ess ential hypertension 3991458 Dental ama lgam filling present 949231787 Headache 49353096 Dietary ma nagement surveillance 035241436 Vitamin D deficiency 347 58254 Health Concerns Section Related Observation LastModified by Organization Detai ls LastModified Time None Recorded Concern Status LastModified by Organization Details LastModified Time None Recorded Advance Directives Directive None Recorded Payers Encounter Date Sequence Insurance Name Policy Number Policy Corrales Covered Member ID Corrales Member ID Guarantor Name 09/08/2018 1 [place] [facility] [id number] Mitra Bar Uday Sukkaew [id number] Mitra Bar Uday Sukkaew 09/29/2018 1 [place] [facility] [id number] Mitra Dipika Uday Sukkaew [id number] Mitra E Uday Sukkaew Notes Date Note Type Note Provider Name and Address Organization Details Recorded Time 09/08/2018 text/html HPI Notes: high bp today and has been elevtated before she has some discomfort under her arms she uses homemade deodorant and a few bumps that ared and itching she had a boil once on her thumb that was drained seh has only worn a few times in a week she stopped wearing deodorant that she used for yrs bc of itchy bumps- melaleucca deodorant seh shaved after itching BM well formed- 2/3 or looser around menses type 6 when she drinks esa, rasp leaf and oat straw BM are well formed coffee /day and 1 quart of water for every 16 oz coffee tired in am put 3 for energy cold hands and feet numbness and tingling if she bends arms at night her fingers get white and they are tingly and when she gets cold she stretches at home anxiety ans nervousness used to take cbd oil tabs in [place] moved last time 2011 for brst - not any problems hot flashes every day m LMP 08/09 no spotting 5 days bleeding occassionally heavier she was on antibiotics a month ago Iraida Salazar ND [address] [place] [address], [place], [address], [facility] [employer] 09/23/2018 10:42:58 09/29/2018 text/html HPI Notes: she h as been eating deli meat-and today her bp is high--her bp at home was 120/80 november 03 she is seeing a retinal specialist for the finding of hole in retina at DR. vela office ocular migraine when waiting for blood to be drawn lasted 20 minutes- blurred parts of vision its not same as retinal vv occlusion then she had zigzags with color streaks- she had a headache on and off for several hours fasting fro 8/9 hours and then she feels exhausted she wants to work out a protocil for removing mercury we discussed getting another dentist0 recomended Dr. Paige reviewed report from referral to Dr. Hercules- he did colpolscopy but didnt see need for biopsy as there were no HPV lesions with vinegar pt was relieved and in another yr she wiull followup on ASCUS finding reviewed reports for 2 referral for 20 minutes we reviewed labs for additional 15 minutes Iraida Salazar ND [address] [place] [address], [place], [address], [facility] [employer] 10/04/2018 08:24:33 OBGyn Episode No OBEpisode recorded.
--- OUTSIDE RECORDS SUMMARY | 2023-12-16 02:40 | XMS_ITS | Encounter Summary ---
Author Organization [facility] Address [address] [place] [address] Care Team Providers Care Supervisor Braiding Name Role Phone Unknown, Provider Primary Care Provider [phone] Encounter Details Date Type Department Care Team ([facility] st Contact Info) Description 09/30/2016 Results Only [facility] [phone] Luis Brumfield, ND [address] [facility] [address] [place] [address] Social History Tobacco Use Types Packs/Day Years Used Date Smoking Tobacco: Never Assessed Sex and Gender Information Value Date Recorded Sex Assigned at Not on file Gender Identity Not on file Sexual Orientation Not on file documented as of this encounter Plan of Treatment Not on file documented as of this encounter Procedures Procedure Name Priority Date/Time Associated Diagnosis Comments PAP TEST- RESULT ONLY Routine 09/30/2016 0:00 EDT documented in this encounter Results * PAP TEST- RESULT ONLY (09/30/2016 0:00 EDT) Pathology Report: CYTOPATHOLOGY REPORT Reports generated via electronic interface contain original data; however they are lacking the format of the original report. Caution should be taken when reading/interpreti ng unformatted reports. Name: ? WM HENDRICKS ? Accession #: ? [id number] ? : ? 1970 (Age: 46) ??F ?Collect Date: ? 09/30/2016 ? Location: ? [facility] ? Receive Date: ? 10/02/2016 ? Provider: LUIS BRUMFIELD ND Copy to: ? Final Report SPECIMEN ADEQUACY ? Satisfactory for Evaluation - transformation zone component present GENERAL CATEGORIZATION ? Negative for Intraepithelial Lesion or Malignancy ?? Last Menstrual Period: 09/12/2016 Hormonal/Contracep tive status: Condoms Other: FAX - Request for Fax report: [phone] Specimen/Source: ??Pap Test, Cervix/Endocervix, ThinPrep Imaging System with manual evaluation Document reviewed and electronically signed by: ? SHERRILL Brower(ASCP) ? Report ??Date: 10/12/2016 11:40 HPV with Pap Test ? Date Ordered: ? 10/12/2016 ? Status: ?? Signed Out ?Date Complete: ? 10/13/2016 ? By: ??System Interface ? Date Reported: ? 10/13/2016 ? Interpretation RESULT: Negative for HPV. No E6 or E7 mRNA is detected from HPV types 16,18,31,33,35, 39,45,51,52,56,58, 59,66, and 68 by chaplain mediated amplification. Comments Document reviewed and electronically signed by: ? System Interface ? Report date: 10/13/2016 By the signature above, the attending physician certifies that he/she has personally conducted a gross and/or microscopic examination of the described specimens and rendered or confirmed the above diagnosis. End of Report [facility] 09/30/2016 10/02/2016 Luis Brumfield ND PATHOLOGY ORDER LUCAS [facility] [address] [place] [address] documented in this encounter Visit Diagnoses Not on filedocumented in this encounter Care Teams Supervisor Braiding Relationship Specialty Start Date End Date Unknown, Provider, PCP - General 10/02/16 08/26/17 documented as of this encounter
--- OUTSIDE RECORDS SUMMARY | 2023-12-16 02:40 | XMS_ITS | Encounter Summary ---
Author Organization [facility] Address [address] [place] [address] Care Team Providers Care Steel Pourer Helper Name Role Phone Dustin Brumfield ND Primary Care Provider Encounter Details Date Type Department Care Team (Late st Contact Info) Description 12/28/2022 Lab Requisition [facility] Pathology & Laboratory Medicine - [facility] [address] [place] [address] Susan Wright MD [address] [place] [address] [place] [phone] Encounter for other general examination Social History [...] Date/Time Associated Diagnosis Comments PAP TEST Today 12/24/2022 13:55 EDT Encounter for other general examination HPV DNA DETECTION WITH GENOTYPING, PCR Today 12/24/2022 13:55 EDT Encounter for other general examination documented in this encounter Results * HUMAN PAPILLOMAVIRUS (HPV) DETECTION-HIGH RISK TYPES (12/24/2022 13:55 EDT) HPV other High Risk types, PCR Negative Negative 01/21/2023 15:33 EDT [facility] Comment:No E6 or E7 mRNA is detected from HPV types 16,18,31,33,35,39,45,51,52,56,58,59,66, and 68 by senior dot net developer mediated amplification. Pap Test CERVIX UTERI STRUCTURE / Unknown 12/24/2022 13:55 EDT 01/20/2023 14:48 EDT Susan Wright MD MICROBIOLOGY - GENER AL ORDERABLES [facility] [address] [place] [address] * PAP TEST (12/24/2022 13:55 EDT) Amendment Comment This report is amended to include High Risk HPV testing results. 01/21/2023 15:33 T [facility] Specimens A. Cervix and/or Endocervix , ThinPrep Imaging System with Manual Evaluation 01/21/2023 15:33 [facility] Specimen Adequacy Satisfactory for Evaluation - transformation zone component present 01/21/2023 15:33 [facility] General Categorization Negative for intraepithelial lesion or malignancy 01/21/2023 15:33 [facility] Attestation . 01/21/2023 15:33 [facility] Amendment electronically signed by Mich Jay CT(ASCP) on 01/21/2023 at 1532 at 1356 Clinical History SEE BELOW 01/22/20 15:33 [facility] HPV The result for the Human Papillomavirus (HPV) Detection-High Risk Types is Negative. No E6 or E7 mRNA is detected from HPV types 16,18,31,33,35,39 ,45,51,52,56,58,5 9,66, and 68 by senior dot net developer mediated amplification.Kelly ting was performed on specimen [id number] and was resulted on 01/21/2023 1532 EDT by KAYLEE, LAB INSTRUMENT RESULTS IN 01/21/2023 15:33 EDT [facility] Performing Lab [facility] 01/21/2023 15:33 EDT [facility] Scanned Images 01/21/2023 15:33 EDT [facility] Pap Test CERVIX UTERI STRUCTURE / Unknown 12/24/2022 13:55 EDT 12/28/2022 11:50 EDT Susan Wright MD PATHOLOGY ORDERABLES [facility] [address] [place] [address] documented in this encounter Visit Diagnoses Diagnosis Encounter for other general examination documented in this encounter Care Teams Steel Pourer Helper Relationship Specialty Start Date End Date Dustin Brumfield ND [address] [place] [address] PCP - General 08/27/17 documented as of this encounter
--- OUTSIDE RECORDS SUMMARY | 2023-12-16 02:40 | XMS_ITS | Encounter Summary ---
Author Organization Health system Address [address] [place] [address] Care Team Providers Care Water Resources Program Director Name Role Phone Dustin Brumfield [place] Primary Care Provider Reason for Visit * Reason Comments Eye Problem eval for BRVO with R E right eye * Consult (Routine) - Closed Specialty Diagnoses / Procedures Referred By Isra t Referred To Contact Ophthalmology Diagnoses Tributary (branch) retinal vein occlusion, right eye, with macular edema Myopia, bilateral Regular astigmatism, bilateral Presbyopia Rosalba Cole, OD [address], [place] [address] Santo Woo MD [address] [id number] Referral ID Status Reason Start Date Expiration Date Visits Re quested Visits Authorized [id number] Closed 1 1 Encounter Details Date Type Department Care Team (Late st Contact Info) Description 08/27/2017 14:15 EDT Office Visit [facility] Ophthalmology - [facility] [address], [place] [id number] Robbin Perry MD [address] [place] [id number] Social History Tobacco Use Types Packs/Day Years Used Date Smoking Tobacco: Never Smokeless Tobacco: Never Sex and Gender Information Value Date Recorded Sex Assigned at Not on file Gender Identity Not on file Sexual Orientation Not on file documented as of this encounter Progress Notes * Robbin Perry MD - 08/27/2017 1415 EDT Chief Complaint Patient presents with ??? Eye Problem eval for BRVO with RE right eye HPI Location: Right eye Pain: 0 - No pain Quality: Blurry Severity: Moderate Duration: Months Timing: Constant Lasts: Months Context: losing bits of vision right eye x approx 2 mos Modifying factors: headaches x mos Associated Signs & Symptoms: no new flashes or floaters Visual Fluctuations: None Attestation: The above HPI has been reviewed by the Attending Physicianloss of vision right eye, months, mod, constant, no new F/F, no eye pain Base Eye Exam Visual Acuity (Snellen - Linear) Right Left Dist cc 20/40 +2 20/20 Dist ph cc NI Tonometry (Applanation, 14:45) Right Left Pressure 15 13 Pupils Pupils Right PERRL Left PERRL Dilation Both eyes: 1.0% Mydriacyl, 2.5% Phenylephrine @ 14:45 Slit Lamp and Fundus Exam External Exam Right Left External Normal Normal Slit Lamp Exam Right Left Lids/Lashes Normal Normal Conjunctiva/Sclera White and quiet White and quiet Cornea Clear Clear Anterior Chamber Deep and quiet Deep and quiet Iris no neovascularization no neovascularization Lens Trace Nuclear sclerosis Trace Nuclear sclerosis Vitreous Normal Normal Fundus Exam Right Left Disc Normal, no neovascularization Normal C/D Ratio no NVD 0.1 Macula heme sup, thickening Normal Vessels mild tort, AV nicking Normal Periphery Normal Normal Please refer to large retinal drawing. IMAGING: OCT REPORT Indications: BRVO/RE Findings: Right Eye Left Eye Retinal Edema Normal Original test to be found in patients shadow chart IMPRESSION: 1. BRVO (branch retinal vein occlusion) 2. Retinal edema 3. Nuclear sclerosis of both eyes PLAN: BRVO/ RE right eye Recommend Avastin right eye today Patient wishes to hold off on injection today Will recheck in a month Observe Trace NSC both eyes NVS Observe Return in about 4 weeks (around 09/24/2017), or if symptoms worsen or fail to improve, for OCT and ?Avastin right eye. I, Dr. Robbin Perry, have performed my own HPI and reviewed the tech's ROS. I have also reviewed the patient's past medical, family, social and surgical history, as well as the patient's medications, allergies, and problem list. I am scribing for Dr. Robbin Perry MD while he is personally performing the service. Roro Rocha (Scribe) documented in this encounter Consult Notes * Robbin Perry MD - 08/27/[address] [facility] OPHTHALMOLOGY CONSULTATION - 08/27/2017 Rosalba Cole [facility] [address] [place] [address] Cole: I had the pleasure of seeing Ms Mitra Almaguer in vitreoretinal consultation on the 27 of August. As you know, she is a very pleasant 47-year-old woman who had noted decreased vision in her right eye, and you diagnosed a branch retinal vein occlusion. On physical examination, the visual acuity was 20/40+2 in her right eye and 20/20 in the left. Intraocular pressure was 15 in the right eye, 13 in the left. On anterior segment examination, there is trace nuclear sclerotic cataract in each eye without evidence of neovascularization of the iris in either eye. On dilated funduscopic examination of the right eye. There was no neovascularization of the disk. There was some hemorrhage and superior thickening of the macula and mild tortuosity and AV nicking of the retinal vasculature. On dilated funduscopic examination of the left eye, there were no acute vitreoretinal abnormalities. OCT imaging confirmed retinal edema of the right eye in the superior macula. I agree Ms Almaguer has a BRVO with retinal edema in her right eye. We discussed intravitreal injection therapy and recommended initiation. At this point, she carefully considered her options and would like to observe for 1 more month. We did discuss that if there is an improvement, then we can certainly continue observation, but if there is a worsening, then she may likely want to consider initiation of anti-VEGF therapy. Thank you very much for allowing me to participate in the care of this very pleasant woman. Sincerely, Robbin Perry MD 02 09 PM - Robbin Perry MD en Dictation ID: [id number] cc: Rosalba Cole OD, [facility] [address], [place] [address] documented in this encounter Plan of Treatment Not on file documented as of this encounter Visit Diagnoses Diagnosis BRVO (branch retinal vein occlusion)- Primary Retinal edema Nuclear sclerosis of both eyes documented in this encounter Eye Exam Visual Acuity (Snellen - Linear) Right eye Left eye Dist cc 20/40 +2 20/20 Dist ph cc NI Tonometry (Applanation, 14:45) Right eye Left eye Pressure 15 13 Pupils Pupils Right eye PERRL Left eye PERRL Dilation Both eyes: 1.0% Mydriacyl, 2 .5% Phenylephrine @ 14:45 External Exam Right eye Left eye External Normal Normal Slit Lamp Exam Right eye Left eye Lids/Lashes Normal Normal Conjunctiva/Sclera White and quiet White and leobardo et Cornea Clear Clear Anterior Chamber Deep and quiet Deep and quiet Iris no neovascularization no neovasc ularization Lens Trace Nuclear sclerosis Trace Nu clear sclerosis Vitreous Normal Normal Fundus Exam Right eye Left eye Disc Normal, no neovascularization No rmal C/D Ratio no NVD 0.1 Macula heme sup, thickening Normal Vessels mild tort, AV nicking Normal Periphery Normal Normal Care Teams Water Resources Program Director Relationship Specialty Start Date End Date Dustin Brumfield [place] [address] [place] [address] PCP - General 08/27/17 documented as of this encounter
--- OUTSIDE RECORDS SUMMARY | 2023-12-16 02:40 | XMS_ITS | Encounter Summary ---
Author Organization [facility] Address [address] [place] [address] Care Team Providers Care Merchandise Displayer Name Role Phone Dustin Brumfield ND Primary Care Provider Encounter Details Date Type Department Care Team (Late st Contact Info) Description 10/20/2019 Lab Requisition [facility] Pathology & Laboratory Medicine - [address] [address] Outr Resulting Lab, Provider Social History Tobacco [...] Procedure Name Priority Date/Time Associated Diagnosis Comments T3 FREE Routine 10/20/2019 10:01 EDT documented in this encounter Results * T3 FREE (10/20/2019 10:01 EDT) T3, Free 4.5 2.8 - 5.3 pg/mL 10/20/2019 16:17 EDT [facility] Blood VENOUS BLOOD / Unknown 10/20/2019 10:01 EDT 10/20/2019 15:51 EDT Provider Outr Resulting Lab CHEMISTRY & BLOOD GAS ORDERABLES [facility] [address] [place] [address] documented in this encounter Visit Diagnoses Not on filedocumented in this encounter Care Teams Merchandise Displayer Relationship Specialty Start Date End Date Dustin Brumfield [place] [address] [place] [address] PCP - General 08/27/17 documented as of this encounter
[2023-12-16 09:22] LABS: Anion Gap 8.6 mmol/L (3-11); BUN 5 mg/dL (7-18); CO2 26.4 mmol/L (21.0-32.0); CREATININE 0.8 mg/dL (0.55-1.02); Chloride 103 mmol/L (98-107); Estimated GFR 86.96 (mL/min/1.73m2); Glucose 80 mg/dL (74-106); Potassium 4.5 mmol/L (3.5-5.1); Sodium 138 mmol/L (136-145)
[2023-12-17 15:20] LABS: Albumin g/dL 4.9 g/dL (3.6-5.2); Total Protein 8.1 g/dL (6.3-8.2)
== END 2023-12-16 02:39 | disposition home or self-care (01) ==
PROVIDERS: Nurse Practitioner Adult Health; PCP Nurse Practitioner; Visit Provider Nurse Practitioner
DX: I10 Essential (primary) hypertension (principal); R77.8 Other specified abnormalities of plasma proteins
CPT/HCPCS: 36415; 80048; 84165

== ENCOUNTER 2024-12-11 03:00 | Outpatient (CLI) | payer OTHER, SELFPAY ==
[2024-12-11 07:48] LABS: Abs Immature Grans 0.01 10^3/uL (0.0-0.06); HCT 39.9 % (36.0-46.0); HGB 13.8 g/dL (11.2-15.7); Immature Grans % 0.2 %; MCH 29.2 pg (27.0-33.0); MCHC 34.6 % (32.0-36.0); MCV 85 fL (80-95); MPV 9.0 fL (8.0-11.0); Platelet Count 327 10^3/uL (130-400); RBC 4.72 10^6/uL (3.93-5.22); RDW 13.1 % (11.7-14.6); RDW-SD 41.0 fL; WBC 5.85 10^3/uL (4.4-10.8)
[2024-12-11 07:55] LABS: Hemoglobin A1C 5.3 % (<5.7)
[2024-12-11 09:08] LABS: ALT 36 U/L (14-59); AST 28 U/L (15-37); Albumin 4.0 g/dL (3.4-5.0); Alkaline Phosphatase 126 U/L (46-116); Anion Gap 5.6 mmol/L (3-11); BUN 6 mg/dL (7-18); Bilirubin, Total 0.6 mg/dL (0.2-1.0); CO2 29.4 mmol/L (21.0-32.0); Calcium 9.3 mg/dL (8.5-10.1); Calculated LDL 145 mg/dL (<100); Chloride 96 mmol/L (98-107); Cholesterol 246 mg/dL (<200); Estimated GFR 105.28 (mL/min/1.73m2); Glucose 85 mg/dL (74-106); HDL Cholesterol 92 mg/dL (>or=50); Potassium 4.6 mmol/L (3.5-5.1); Sodium 131 mmol/L (136-145); TSH 2.55 uIU/mL (0.36-3.74); Total Protein 8.2 g/dL (6.4-8.2); Triglyceride 46 mg/dL (<150)
== END 2024-12-11 03:01 | disposition home or self-care (01) ==
LOC: LBO 03:00
PROVIDERS: Absent Provider Family Medicine; PCP Nurse Practitioner; Referring Provider Family Medicine; Visit Provider Family Medicine
DX: Z00.00 Encounter for general adult medical examination without abnormal findings (principal); R77.9 Abnormality of plasma protein, unspecified; I10 Essential (primary) hypertension
CPT/HCPCS: 36415; 80053; 80061; 83036; 84443; 85025